=== PATIENT | male | born 1945 | race Caucasian/White ===

== ENCOUNTER 2018-07-21 13:16 | Emergency (ER) | payer OTHER, MEDICARE | END 2018-07-21 19:24 | disposition home or self-care (01) | LOC: E/R 13:16 | DX: M79.604 Pain in right leg (principal); Z79.82 Long term (current) use of aspirin; Z85.46 Personal history of malignant neoplasm of prostate; Z87.891 Personal history of nicotine dependence | CPT/HCPCS: 93971; 99284-25 ==